=== PATIENT | male | born 1995 | race Caucasian/White ===

== ENCOUNTER 2017-12-28 02:46 | Emergency (ER) | payer BC ==
[2017-12-28] MEDS ORDERED: TRANEXAMIC ACID 1,000 MG/10 ML VIAL. TOP ×2 (03:30)
[2017-12-28] MEDS ORDERED: LIDOCAINE 2%/EPI 1:100,000 20 ML VIAL. IJ ×2 (03:30)
[2017-12-28] MEDS ORDERED: ONDANSETRON PF 4 MG/2 ML VIAL. ×2 (03:33)
[2017-12-28] MEDS: OXYMETAZOLINE 0.05% NASAL SPRAY 30ML BOTTLE. NS ×2 (03:52)
[2017-12-28] MEDS: ONDANSETRON PF 4 MG/2 ML VIAL. IV ×2 (03:53)
[2017-12-28 04:52] LABS: ADD MAN DIFF? NO
[2017-12-28 04:56] LABS: BASO % 0 % (0-3); EOS # 0.2 x10^3/uL (0.0-0.7); EOS % 2 % (0-3); HEMATOCRIT 45.1 % (39.0-53.0); HEMOGLOBIN 15.4 g/dL (13.0-17.5); LYMPH # 2.2 x10^3/uL (1.0-4.8); LYMPH % 26 % (24-48); MEAN CORPUSCULAR HEMOGLOBIN 33 pg (25-35); MEAN CORPUSCULAR HGB CONC 34 g/dL (31-37); MEAN CORPUSCULAR VOLUME 96 fL (79-100); MONO # 0.9 x10^3/uL (0.0-1.1); MONO % 11 % (0-9); NEUT # 5.1 x10^3uL (1.8-7.7); NEUT % 61 % (31-73); PLATELET COUNT 242 x10^3/uL (140-400); RED BLOOD COUNT 4.69 x10^6/uL (4.30-5.70); RED CELL DISTRIBUTION WIDTH 12.8 % (11.5-14.5); WHITE BLOOD COUNT 8.3 x10^3/uL (4.0-11.0)
[2017-12-28 05:08] LABS: ANION GAP 12 (6-14); BLOOD UREA NITROGEN 18 mg/dL (8-26); BUN/CREATININE RATIO 18 (6-20); CALCIUM 9.5 mg/dL (8.5-10.1); CARBON DIOXIDE 26 mmol/L (21-32); CHLORIDE 103 mmol/L (98-107); GFR 92.6; GLUCOSE 87 mg/dL (70-99); POTASSIUM 3.4 mmol/L (3.5-5.1); SODIUM 141 mmol/L (136-145)
[2017-12-28 05:12] LABS: INR 1.1 (0.8-1.1); PARTIAL THROMBOPLASTIN TIME 30 SEC (24-38); PROTHROMBIN TIME PATIENT 13.5 SEC (11.7-14.0)
[2017-12-28 05:14] LABS: ALBUMIN/GLOBULIN RATIO 1.1 (1.0-1.7); ALK PHOS 132 U/L (46-116); ALT (SGPT) 28 U/L (16-63); AST (SGOT) 14 U/L (15-37); TOTAL BILIRUBIN 0.7 mg/dL (0.2-1.0); TOTAL PROTEIN 7.5 g/dL (6.4-8.2)
== END 2017-12-28 05:56 | disposition short-term general hospital (02) ==
LOC: ER 02:46
DX: R04.0 Epistaxis (principal)
CPT/HCPCS: 30905; 36415; 80053; 85025; 85610; 85730; 96374; 99285-25; J2405